=== PATIENT | female | born 1980 | race African-American/Black ===

== ENCOUNTER 2017-08-26 17:11 | Emergency (ER) | payer MEDICARE, MEDICAID ==
[~2017-08-26] VITALS: Ht 175.3 cm; Wt 62.0 kg
[2017-08-26 17:21] VITALS: BP 107/73
== END 2017-08-27 04:14 | disposition left against medical advice (07) ==
LOC: ER 17:11
DX: Z53.21 Procedure and treatment not carried out due to patient leaving prior to being seen by health care provider (principal); Z88.0 Allergy status to penicillin